=== PATIENT | male | born 1950 | race Two or more races ===

== ENCOUNTER 2017-03-21 05:38 | Day surgery (SDC) | payer MEDICARE, MEDICAID ==
[~2017-03-21] VITALS: Ht 175.3 cm; Wt 65.8 kg
[2017-03-21] MEDS ORDERED: CELECOXIB 100 MG CAPSULE ONE (05:47)
[2017-03-21] MEDS ORDERED: oxyCODONE HCL SR 10MG TAB.SR.12H PO ONE (05:48)
[2017-03-21] MEDS ORDERED: IV SET PRIMARY 1 EA INFUS.SET MC ONE (05:49)
[2017-03-21] MEDS ORDERED: IV LR 1000 ML 1,000 ML ONE (05:49)
[2017-03-21] MEDS ORDERED: ACETAMINOPHEN ES 500 MG TABLET ONE (05:49)
[2017-03-21] MEDS ORDERED: METOCLOPRAMIDE HCL 10 MG/2 ML VIAL ONE (05:49)
[2017-03-21] MEDS ORDERED: NEEDLELESS EST SET LARGE BORE 1 EA INFUS.SET MC ONE (05:49)
[2017-03-21] MEDS ORDERED: KETOROLAC TROMETHAMINE INJ 30 MG/ML VIAL ONE (06:38)
[2017-03-21] MEDS ORDERED: BUPIVACAINE MPF 0.5% W/EPI INJ 30 ML VIAL ONE (06:38)
[2017-03-21] MEDS ORDERED: MORPHINE SULFATE INJ 10 MG/ML DISP.SYRIN ONE (06:38)
[2017-03-21] MEDS ORDERED: EPINEPHRINE (1:1000) MDV 30 MG/30ML VIAL ONE (06:45)
[2017-03-21] MEDS ORDERED: FENTANYL PF 100MCG/2ML AMPUL ONE (06:48)
[2017-03-21] MEDS ORDERED: MIDAZOLAM HCL 2 MG/2ML VIAL ONE (06:49)
[2017-03-21] MEDS ORDERED: MEPERIDINE HCL/PF 50 MG/ML DISP.SYRIN ONE (08:03)
== END 2017-03-21 09:00 | disposition home or self-care (01) ==
LOC: DS 05:38
PROVIDERS: ATTEND Orthopaedic Surgery
DX: S83.241A Other tear of medial meniscus, current injury, right knee, initial encounter (principal); X58.XXXA Exposure to other specified factors, initial encounter; Y93.89 Activity, other specified; Y92.89 Other specified places as the place of occurrence of the external cause; Y99.8 Other external cause status; M65.861 Other synovitis and tenosynovitis, right lower leg
CPT/HCPCS: 88304-TC; 88305-TC; 88311-TC; A4217; A6253; J0171; J0690; J1100; J1885; J2175; J2250; J2270; J2765; J3010; J3490; J7120; Z7610